=== PATIENT | female | born 1975 | race Caucasian/White ===

== ENCOUNTER → 2023-08-17 | Outpatient (CLI) | payer OTHER | LOC: M RAD 11:42 | PROVIDERS: ATTEND Nurse Practitioner Family | DX: M79.661 Pain in right lower leg (principal); R60.0 Localized edema ==

== ENCOUNTER 2023-09-05 07:30 | Emergency (ER) | payer OTHER ==
[~2023-09-05] VITALS: Ht 165.1 cm; Wt 113.6 kg
[2023-09-05] MEDS ORDERED: MELO15TA28 (07:38)
[2023-09-05] MEDS: KETOROLAC 30 MG/ML 1ML VIAL IM ONE (10:02)
[2023-09-05 10:46] LABS: BASO % 0.3 % (0.0-1.0); EOS % 0.1 % (0.0-3.0); HEMATOCRIT 43.7 % (36.0-47.0); HEMOGLOBIN 14.5 g/dl (12.0-15.5); LYMPH # 2.2 10^3/uL (1.5-5.0); LYMPH % 19.2 % (24.0-44.0); MEAN CORPUSCULAR HEMOGLOBIN 29.7 pg (27.0-33.0); MEAN CORPUSCULAR HGB CONC 33.2 g/dl (32.0-36.5); MEAN CORPUSCULAR VOLUME 89.4 fl (80.0-96.0); MONO # 0.8 10^3/uL (0.0-0.8); NEUTROPHILS # 8.5 10^3/uL (1.5-8.5); NEUTROPHILS % 73.2 % (36.0-66.0); PLATELET COUNT, AUTOMATED 320 10^3/uL (150-450); RED BLOOD COUNT 4.89 10^6/uL (4.00-5.40); WHITE BLOOD COUNT 11.6 10^3/uL (4.0-10.0)
[2023-09-05 10:58] LABS: INR 1.03; PROTHROMBIN TIME 13.2 SECONDS (12.5-14.5)
[2023-09-05] MEDS ORDERED: ELIQ5TAB PO (11:09)
[2023-09-05] MEDS ORDERED: TRAM50TA2 PO (11:10)
[2023-09-05] MEDS ORDERED: ROLLMIS8 XX (11:15)
[2023-09-05] MEDS: APIXABAN 5 MG TAB (ELIQUIS) PO ONE (11:15)
[2023-09-05 11:28] VITALS: BP 139/95; TEMP 98; O2SAT 95
== END 2023-09-05 11:36 | disposition home or self-care (01) ==
LOC: M ED 07:30
DX: I82.401 Acute embolism and thrombosis of unspecified deep veins of right lower extremity (principal); M79.81 Nontraumatic hematoma of soft tissue
CPT/HCPCS: 80047; 85025; 85610; 85730; 93971; 96372; 99283; J1885